=== PATIENT | female | born 1955 | race Caucasian/White ===

== ENCOUNTER → 2024-01-12 10:11 | Outpatient (REF) | payer MEDICARE, SELFPAY | LOC: RAD 10:11 | PROVIDERS: ATTENDING PHYSICIAN Physician Assistant | DX: M25.552 Pain in left hip (principal) | CPT/HCPCS: 73502 ==

== ENCOUNTER → 2024-06-09 10:28 | Outpatient (REF) | payer MEDICARE, SELFPAY | LOC: WDC 10:28 | PROVIDERS: ATTENDING PHYSICIAN Obstetrics & Gynecology Gynecology; FAMILY PHYSICIAN Family Medicine | DX: Z12.31 Encounter for screening mammogram for malignant neoplasm of breast (principal) | CPT/HCPCS: 77063; 77067 ==

== ENCOUNTER → 2025-06-14 10:42 | Outpatient (REF) | payer OTHER, SELFPAY | LOC: WDC 10:42 | PROVIDERS: ATTENDING PHYSICIAN Obstetrics & Gynecology Gynecology; FAMILY PHYSICIAN Family Medicine | DX: Z12.31 Encounter for screening mammogram for malignant neoplasm of breast (principal) | CPT/HCPCS: 77063; 77067 ==

== ENCOUNTER → 2025-06-15 09:11 | Outpatient (REF) | payer OTHER, SELFPAY | LOC: RAD 09:11 | PROVIDERS: ATTENDING PHYSICIAN Family Medicine | DX: R19.8 Other specified symptoms and signs involving the digestive system and abdomen (principal) | CPT/HCPCS: 76830; 76856 ==